=== PATIENT | female | born 1970 | race African-American/Black ===

== ENCOUNTER 2018-09-09 07:06 | Inpatient (IN) | payer MEDICAID ==
[~2018-09-09] VITALS: Ht 167.6 cm; Wt 78.8 kg
[2018-09-09] MEDS ORDERED: PSEU-191 PO (07:21)
[2018-09-09 07:23] LABS: EOSINOPHILS % (AUTO) 3.4 % (1.0-6.0); HEMATOCRIT 47.1 % (36-46); HEMOGLOBIN 15.4 g/dL (12.0-16.0); LYMPHOCYTES # (AUTO) 1.3 K/uL (1.0-4.8); LYMPHOCYTES % (AUTO) 27.6 % (22.0-44.0); MEAN CORPUSCULAR HGB CONC 32.7 G/dL (31.0-37.0); MEAN CORPUSCULAR VOLUME 92 fL (80-100); MONOCYTES # (AUTO) 0.5 K/uL (0.1-1.0); MONOCYTES % (AUTO) 9.6 % (2.0-9.0); NEUTROPHILS # (AUTO) 2.8 K/uL (1.8-7.7); NEUTROPHILS % (AUTO) 58.4 % (40.0-70.0); PLATELET COUNT (AUTO) 319 K/uL (150-450); RED BLOOD CELL COUNT(AUTO) 5.15 MIL/uL (4.00-5.20); RED CELL DISTRIBUTION WIDTH 14.6 % (11.5-14.5)
[2018-09-09 07:32] LABS: CALCIUM, TOTAL 8.7 mg/dL (8.8-10.5); CREATININE 1.28 mg/dL (0.60-1.30); POTASSIUM 4.2 mmol/L (3.5-5.1)
[2018-09-09] MEDS ORDERED: IOVERSOL 350 MG/ML 100 ML VIAL ONE (07:34)
[2018-09-09] MEDS ORDERED: SODIUM CHLORIDE 0.9% 100 ML ONE (07:34)
[2018-09-09 07:37] LABS: ALBUMIN 3.8 g/dL (3.4-5.0); BILIRUBIN,TOTAL 0.2 mg/dL (0.1-1.0); TOTAL PROTEIN, SERUM 7.1 g/dL (6.4-8.2)
[2018-09-09 07:38] LABS: INR 0.9 (0.9-1.1); PROTHROMBIN TIME 9.7 SEC (9.4-11.6)
[2018-09-09] MEDS ORDERED: LORazepam 1 MG TABLET PO ONE (08:30)
[2018-09-09 11:17] LABS: AMPHET/METH SCREEN,URINE POSITIVE (NEGATIVE); BARBITURATE SCREEN, URINE NEGATIVE (NEGATIVE); BENZODIAZEPINES SCREEN,URINE NEGATIVE (NEGATIVE); CANNABINOID SCREEN,URINE NEGATIVE (NEGATIVE); COCAINE SCREEN,URINE NEGATIVE (NEGATIVE); METHADONE SCREEN, URINE NEGATIVE (NEGATIVE); OPIATE SCREEN,URINE NEGATIVE (NEGATIVE)
[2018-09-09 11:18] LABS: PHENCYCLIDINE SCREEN,URINE NEGATIVE (NEGATIVE)
[2018-09-09 11:22] LABS: BILIRUBIN,URINE NEGATIVE (NEGATIVE); GLUCOSE, URINE (UA) NEGATIVE (NEGATIVE); KETONES,URINE NEGATIVE (NEGATIVE); LEUKOCYTE ESTERASE ,URINE SMALL (NEGATIVE); NITRATE,URINE NEGATIVE (NEGATIVE); OCCULT BLOOD,URINE NEGATIVE (NEGATIVE); PROTEIN,URINE NEGATIVE (NEGATIVE); UROBILINOGEN,URINE 0.2 mg/dL (<=1.0)
[2018-09-09 11:43] LABS: APPEARANCE,URINE HAZY (CLEAR); RBC,URINE 0-2 /HPF (0-2)
[2018-09-09 11:44] LABS: BACTERIA,URINE None Seen /HPF (None Seen); SQUAMOUS EPITHELIAL CELL,UR Moderate /LPF (None Seen)
[2018-09-09] MEDS ORDERED: GADOBUTROL 1 MMOL/ML 10 ML VIAL IVP ONE (11:45)
[2018-09-09] MEDS ORDERED: ZOLPIDEM TARTRATE 5 MG TABLET PO PRN (13:30)
[2018-09-09] MEDS ORDERED: BISACODYL 10 MG RECTAL RECTAL SUPPOSITORY PR PRN (13:30)
[2018-09-09] MEDS ORDERED: MORPHINE SULFATE 2 MG/ML SYRINGE IVP PRN (13:30)
[2018-09-09] MEDS ORDERED: ONDANSETRON HCL 4 MG/2 ML VIAL IVP PRN (13:30)
[2018-09-09] MEDS ORDERED: ACETAMINOPHEN 325 MG TABLET PO PRN (13:30)
[2018-09-09] MEDS ORDERED: MAGNESIUM HYDROXIDE SUSPENSION 30 ML UDCUP PO PRN (13:30)
[2018-09-09] MEDS: HEPARIN SODIUM,PORCINE 5,000 UNITS/ML VIAL SQ SCH (16:33)
[2018-09-09 19:30] VITALS: BP 133/83
[2018-09-09] MEDS: DOCUSATE SODIUM 100 MG CAPSULE PO SCH (20:57)
[2018-09-09] MEDS: HYDROCODONE/ACETAMINOPHEN 5-325 MG TABLET PO PRN (21:00)
[2018-09-10] MEDS: HEPARIN SODIUM,PORCINE 5,000 UNITS/ML VIAL SQ SCH ×2 (00:18→08:00)
[2018-09-10 00:46] VITALS: BP 119/78
[2018-09-10 06:06] VITALS: BP 144/73
[2018-09-10 06:25] LABS: CHOL/HDL RATIO 3.7 (3.9-5.7); THYROID STIMULATING HORMONE 0.36 uIU/mL (0.36-3.74)
[2018-09-10] MEDS: HYDROCODONE/ACETAMINOPHEN 5-325 MG TABLET PO PRN (07:58)
[2018-09-10] MEDS: DOCUSATE SODIUM 100 MG CAPSULE PO SCH (07:58)
[2018-09-10 08:11] VITALS: BP 128/82
[2018-09-10] MEDS ORDERED: SIMVASTATIN 10 MG TABLET PO SCH (09:00)
[2018-09-10] MEDS ORDERED: ASPIRIN 81 MG CHEWABLE TABLET PO SCH (09:00)
[2018-09-10] MEDS ORDERED: PANTOPRAZOLE SODIUM 40 MG DR TABLET PO SCH (09:00)
[2018-09-10 11:27] VITALS: BP 124/73
[2018-09-10] MEDS ORDERED: SUMA25TA9 PO (12:00)
[2018-09-10] MEDS ORDERED: ASPI81 PO (12:02)
== END 2018-09-10 15:35 | disposition home or self-care (01) | DRG 54 ==
LOC: EMS 07:06 → 5S 17:22
PROVIDERS: ADMIT Internal Medicine; ATTEND Internal Medicine
DX: G43.109 Migraine with aura, not intractable, without status migrainosus (principal); I67.82 Cerebral ischemia; F17.210 Nicotine dependence, cigarettes, uncomplicated; I10 Essential (primary) hypertension; Z88.0 Allergy status to penicillin
CPT/HCPCS: 70496; 70553; 72125; 84443; 86850; 86900; 86901; 93005; 93306; 93880; 93931; 93971; 96372; 99291; A9585; G0378; J1644; J7050

== ENCOUNTER 2019-11-30 04:28 | Emergency (ER) | payer MEDICAID, OTHER, SELFPAY ==
[~2019-11-30] VITALS: Ht 162.6 cm; Wt 77.3 kg
[~2019-11-30 04:28] MED LIST: ASPI-728 PO; PSEU-191 PO; SUMA25TA9 PO
[2019-11-30] MEDS ORDERED: LOSA-30 PO (04:40)
[2019-11-30] MEDS ORDERED: METO50 PO (04:40)
[2019-11-30] MEDS ORDERED: ESCI-8 PO (04:40)
[2019-11-30] MEDS ORDERED: OMEP20 PO (04:40)
[2019-11-30] MEDS ORDERED: MELO-107 PO (04:40)
[2019-11-30] MEDS ORDERED: ACET-2123 PO (04:40)
[2019-11-30] MEDS ORDERED: ACETAMINOPHEN 500 MG TABLET PO ONE (05:00)
[2019-11-30] MEDS ORDERED: KETOROLAC TROMETHAMINE 30 MG/ML VIAL IVP ONE (05:00)
[2019-11-30 05:18] LABS: BASOPHILS % (AUTO) 0.9 % (0.0-2.0); EOSINOPHILS % (AUTO) 2.3 % (1.0-6.0); HEMATOCRIT 43.7 % (36-46); HEMOGLOBIN 14.5 g/dL (12.0-16.0); LYMPHOCYTES # (AUTO) 1.6 K/uL (1.0-4.8); LYMPHOCYTES % (AUTO) 31.8 % (22.0-44.0); MEAN CORPUSCULAR HEMOGLOBIN 30.1 pg (26.0-34.0); MEAN CORPUSCULAR HGB CONC 33.2 G/dL (31.0-37.0); MEAN CORPUSCULAR VOLUME 91 fL (80-100); MONOCYTES # (AUTO) 0.5 K/uL (0.1-1.0); MONOCYTES % (AUTO) 9.8 % (2.0-9.0); NEUTROPHILS # (AUTO) 2.8 K/uL (1.8-7.7); NEUTROPHILS % (AUTO) 55.2 % (40.0-70.0); PLATELET COUNT (AUTO) 271 K/uL (150-450); RED BLOOD CELL COUNT(AUTO) 4.82 MIL/uL (4.00-5.20); RED CELL DISTRIBUTION WIDTH 14.6 % (11.5-14.5)
[2019-11-30 05:24] LABS: ANION GAP 7 mmol/L (8-16); CALCIUM, TOTAL 8.6 mg/dL (8.8-10.5); CARBON DIOXIDE 29 mmol/L (22-29); CHLORIDE 102 mmol/L (98-107); CREATININE 1.32 mg/dL (0.60-1.30); GLOMERULAR FILTR. RATE CALC 52 mL/min (>60); GLUCOSE,RANDOM 102 mg/dL (70-110); POTASSIUM 3.6 mmol/L (3.5-5.1); SODIUM SERUM 138 mmol/L (136-145); UREA NITROGEN, BLOOD 13 mg/dL (7-18)
[2019-11-30 05:32] LABS: PROTHROMBIN TIME 10.1 SEC (9.4-11.6)
[2019-11-30 05:34] LABS: B-TYPE NATRIURETIC PEPTIDE < 4 pg/mL (0-100)
[2019-11-30] MEDS ORDERED: IOVERSOL 350 MG/ML 150 ML VIAL ONE (05:40)
[2019-11-30] MEDS ORDERED: SODIUM CHLORIDE 0.9% 100 ML ONE (05:40)
[2019-11-30 05:47] LABS: ALANINE AMINOTRANSFERASE 26 U/L (12-78); ALBUMIN 3.8 g/dL (3.4-5.0); ALKALINE PHOSPHATASE 73 U/L (46-116); ASPARTATE AMINOTRANSFERASE 17 U/L (15-37); BILIRUBIN,TOTAL 0.1 mg/dL (0.1-1.0); CREATINE KINASE, TOTAL ONLY 161 U/L (26-192); HCG,QUANTITATIVE < 1 mIU/mL (0-6); LIPASE 98 U/L (73-393); TOTAL PROTEIN, SERUM 7.2 g/dL (6.4-8.2)
[2019-11-30 07:10] LABS: APPEARANCE,URINE CLEAR (CLEAR); BILIRUBIN,URINE NEGATIVE (NEGATIVE); GLUCOSE, URINE (UA) NEGATIVE (NEGATIVE); KETONES,URINE NEGATIVE (NEGATIVE); LEUKOCYTE ESTERASE ,URINE NEGATIVE (NEGATIVE); NITRATE,URINE POSITIVE (NEGATIVE); OCCULT BLOOD,URINE NEGATIVE (NEGATIVE); PH,URINE 6.5 (5.0-8.0); PROTEIN,URINE NEGATIVE (NEGATIVE)
[2019-11-30 07:27] LABS: RBC,URINE None Seen /HPF (0-2); WBC,URINE 0-2 /HPF (0-5)
[2019-11-30 07:28] LABS: BACTERIA,URINE None Seen /HPF (None Seen); SQUAMOUS EPITHELIAL CELL,UR Few /LPF (None Seen)
[2019-11-30 11:09] VITALS: BP 129/70
== END 2019-11-30 11:45 | disposition home or self-care (01) ==
LOC: EMS 04:28
DX: K76.0 Fatty (change of) liver, not elsewhere classified (principal); R07.9 Chest pain, unspecified; I10 Essential (primary) hypertension; G43.909 Migraine, unspecified, not intractable, without status migrainosus; F17.210 Nicotine dependence, cigarettes, uncomplicated; Z88.0 Allergy status to penicillin
CPT/HCPCS: 36415; 70450; 71045; 71260; 71275; 74177; 76700; 80053; 81001; 82550; 83690; 83880; 84484; 84702; 85025; 85610; 85730; 93005; 96374; 99285; J1885; J7050; Q9967; 72193; 74160